=== PATIENT | male | born 1980 | race Caucasian/White ===

== ENCOUNTER 2016-03-26 01:35 | Emergency (ER) | payer SELFPAY ==
--- NOTE | 2016-03-26 01:43 | EDPHY ---
H & P Stated Complaint: cat scratch to hand and nail to thumb 3 days ago now pain to arm HPI/ROS: HPI CHIEF COMPLAINT: Possible cat scratch, possible foreign body, hand infection HISTORY OF PRESENT ILLNESS: This patient very pleasant 35-year-old male he tells me he has significant past medical history for stage III colon cancer untreated diagnosed in 2006, presents emergency room as he lives up in [place] with his significant other and he tells me on he was moving and got a nail puncture wound to the palmar aspect distal aspect right thumb, he is right hand dominant, he also tells me the same day his cat scratched him over the dorsum of the right hand over the 1st and 2nd digits. He now has a swollen red thumb, and the pain radiates into the thenar eminence and a little bit down the flexor tendons however there is no palpable cord or significant redness down the hand or arm. He has right thumb is inflamed, there is a puncture wound present with some yellow discharge, there is redness and swelling and pain and warmth. He does have 2 scratches to the dorsum of the right hand look okay to me. He is neurovascularly intact. He has declined pain medicine here. He is requesting antibiotics. He tells me his tetanus shot is not up-to-date. Patient is pretty sure that the CT only scratched him any also function is thumb on a piece of metal he does not think the cat bit his right thumb but he is not 100% sure. Patient also tells me that he tried to get some pus out of his wound by sticking a piece of metal in there and draining the wound he does tell me he got some yellow black discharge. Past Medical History: Stage III colon cancer untreated Past Surgical History: No significant surgical history Social History: Smokes tobacco daily, denies drugs or alcohol, lives in [place] Family History: noncontributory ROS REVIEW OF SYSTEMS: A comprehensive 10 point review of systems is otherwise negative aside from elements mentioned in the history of present illness. Exam Constitutional triage nursing summary reviewed, vital signs reviewed, awake/ alert. Eyes normal conjunctivae and sclera, EOMI, PERRLA. HENT normal inspection, atraumatic, moist mucus membranes, no epistaxis, neck supple/ no meningismus, no raccoon eyes. Respiratory clear to auscultation bilaterally, normal breath sounds, no respiratory distress, no wheezing. Cardiovascular rate normal, regular rhythm, no murmur, no edema, distal pulses normal. Gastrointestinal soft, non-tender, no rebound, no guarding, normal bowel sounds, no distension, no pulsatile mass. Genitourinary no CVA tenderness. Musculoskeletal no midline vertebral tenderness, full range of motion, no calf swelling, no tenderness of extremities, no meningismus, good pulses, neurovascularly intact. Skin right hand; HAND IS NEUROVASCULAR INTACT GOOD CAP REFILL, WARM EXTREMITY, GOOD PULSES, NO CREPITUS. ON EXAM OF HIS RIGHT HAND THERE IS A PUNCTURE WOUND DISTAL ASPECT OF HIS RIGHT THUMB MEDIAL SIDE PALMAR SIDE WITH SOME YELLOW. EYE DRAINAGE, NO PUS WITH PALPATION, NO CREPITUS, HE IS TENDER IN HIS RIGHT THUMB IS SWOLLEN AND RED DOES REPORT RADIATE TENDERNESS TO HIS THENAR EMINENCE PALMAR SIDE, AND SLIGHTLY TO HIS FLEXOR TENDONS OF HIS WRIST, NO PALPABLE CORD, NO STREAKING OF THE ARM NO SWELLING OF THE ARM. pink, warm, & dry, no rash, skin atraumatic. Neurologic awake, alert and oriented x 3, AAOx3, moves all 4 extremities equally, motor intact, sensory intact, CN II-XII intact, normal cerebellar, normal vision, normal speech. Psychiatric normal mood/affect. Heme/Lymph/Immune no lymphadenopathy. Differential Diagnosis: Includes but is not limited to in a particular order, thumb infection, hand infection, cellulitis, abscess, foreign body in the thumb , cat scratch, need for tetanus Medical Decision Making: I explained this patient will need to do a hand x-ray to rule out foreign body in his thumb which could either be nail on vomit from moving furniture versus tooth fragment from a Cat. Will update this patient's tetanus shot. Patient be started on Augmentin. I gave him strict return precautions he understands return to the emergency room if he has worsening swelling of his right hand, fever, redness, pain, drainage. He will need close follow-up with Hand surgery. At this time his infection is located to the thumb only I do not appreciate a deep space hand infection or arm infection or significant cellulitis. He understands do warm soaks he understands he needs close follow-up with Hand surgery however he has any worsening symptoms he needs to immediately return to the ER. Re-evaluation: ED x-ray right hand: Three view hand: soft tissue swelling over the thumb, no foreign body visualized come no gas, no bony abnormality. Image interpreted by myself. [id number]: I did speak with Infectious Disease Dr. Pena did recommend Augmentin in case a cat bite, and possible MRSA infection which will be covered by doxy so she recommends antibiotics of Augmentin and doxy close follow-up. 1st dose of Augmentin given in the emergency room as well as doxycycline, right hand x-ray reviewed shows no foreign body, no gas, no bony involvement. This patient does understand strict return precautions he understands he should follow up with hand surgeon next 24 hours for recheck of his cat bite/thumb infection and return to the emergency room if there is any further symptoms worsening symptoms including redness, swelling, drainage, pain. There is no source to be cultured at this time. This patient does not have a fever, there is no significant cellulitis of the arm or hand at this time there is no significant streaking and there is no significant tenderness. Do not feel like the patient is to be hospitalized for this at this time however he needs close follow-up. Return if worse he understands. Source: Patient - Personal History Current Tetanus/Diphtheria Vaccine: No Current Tetanus Diphtheria and Acellular Pertussis (TDAP): No - Medical/Surgical History Hx Asthma: No Hx Chronic Respiratory Disease: No Hx Diabetes: No Hx Cardiac Disease: No Hx Renal Disease: No Hx Cirrhosis: No Hx Alcoholism: No Hx HIV/AIDS: No Hx Splenectomy or Spleen Trauma: No - Social History Smoking Status: Current every day smoker Constitutional: Initial Vital Signs Temperature (C) 36.6 C 03/26/16 01:38 Heart Rate 102 H 03/26/16 01:38 Respiratory Rate 18 03/26/16 01:38 Blood Pressure 136/98 H 03/26/16 01:38 O2 Sat (%) 96 03/26/16 01:38 Allergies/Adverse Reactions: No Known Allergies Allergy (Unverified 03/26/16 01:38) Home Medications: Medication Instructions Recorded Amoxicillin/Clavulanate Pot 875 mg PO BID #14 tab 03/26/16 [Augmentin 875 MG TAB (*)] Doxycycline Hyclate 100 mg PO BID #20 tab 03/26/16 Medical Decision Making - Data Points Medications Given: Discontinued Medications Amoxicillin/Clavulanate Potassium (Augmentin 875mg) 875 mg PO EDNOW ONE PRN Reason: Protocol Stop: 03/26/16 02:00 Last Admin: 03/26/16 02:16 Dose: 875 mg Diphtheria/Tetanus/Acell Pertussis (Boostrix) 0.5 ml IM .ONCE ONE Stop: 03/26/16 01:50 Last Admin: 03/26/16 01:56 Dose: 0.5 ml Departure - Departure Disposition: Home, Routine, Self-Care Clinical Impression: Infected hand Cat bite of hand Qualifiers: Encounter type: initial encounter Laterality: right Qualifier Code: (S61.451A) Open bite of right hand, initial encounter Condition: Good Instructions: Animal Bite (ED) Additional Instructions: 1. Watch your hand closely 2. Return to the emergency room immediately if he develops worsening swelling, redness, fever, drainage or you feel like the infection is getting worse. 3. you need to follow-up with Hand surgery. He need to see them in the next 24 hours or today Saturday. 4.Please take her Augmentin as prescribed doxycycline as prescribed. Return if you have worsening symptoms questions or concerns. Referrals: NONE *PRIMARY CARE P,. [Primary Care Provider] - As per Instructions Juan F Rojas MD [Medical Doctor] - As per Instructions Prescriptions: Amoxicillin/Clavulanate Pot [Augmentin 875 MG TAB (*)] 875 mg PO BID #14 tab Doxycycline Hyclate 100 mg PO BID #20 tab
[2016-03-26] MEDS ORDERED: TDAP ADULT 0.5 ML VIAL (BOOSTRIX) IM ONE (01:49)
[2016-03-26] MEDS ORDERED: CEPHALEXIN 500 MG CAP PO ONE (01:57)
[2016-03-26] MEDS ORDERED: SULFAMETHOX/TMP 800/160 MG 1 TAB PO ONE (01:57)
[2016-03-26] MEDS ORDERED: AMOXICILLIN/CLAVULANATE POT 875/125 MG TAB PO ONE (01:59)
[2016-03-26] MEDS ORDERED: DOXYCYCLINE HYCLATE 100 MG CAP/TAB PO ONE (02:27)
[2016-03-26 02:41] VITALS: BP 113/78; PULSE 94; RESP 14; TEMP 98.1; O2SAT 95
--- NOTE | 2016-03-26 08:17 | DX ---
Right Hand, Three Views Indication: Hand redness and swelling. Findings: Bony alignment of the hand is anatomic. Joint spaces are well maintained. No fracture or di slocation. No foreign body. Mild soft tissue swelling is present. Impression: Mild soft tissue swelling. No fracture.
== END 2016-03-26 02:40 | disposition home or self-care (01) ==
DX: L08.9 Local infection of the skin and subcutaneous tissue, unspecified (principal); S61.451A Open bite of right hand, initial encounter; F17.200 Nicotine dependence, unspecified, uncomplicated; Z85.038 Personal history of other malignant neoplasm of large intestine; Z23 Encounter for immunization; W55.03XA Scratched by cat, initial encounter